=== PATIENT | female | born 1940 | race Caucasian/White ===

== ENCOUNTER → 2017-04-11 | Outpatient (CLI) | payer OTHER | LOC: CIMAGING 09:33 | PROVIDERS: ATTEND Internal Medicine | DX: Z12.31 Encounter for screening mammogram for malignant neoplasm of breast (principal); R92.8 Other abnormal and inconclusive findings on diagnostic imaging of breast | CPT/HCPCS: G0202 ==

== ENCOUNTER → 2017-05-04 | Outpatient (CLI) | payer OTHER | LOC: CIMAGING 13:29 | PROVIDERS: ATTEND Internal Medicine | DX: R92.1 Mammographic calcification found on diagnostic imaging of breast (principal) | CPT/HCPCS: G0204 ==

== ENCOUNTER → 2017-09-05 | Outpatient (CLI) | payer OTHER | LOC: CIMAGING 17:28 | PROVIDERS: ATTEND Internal Medicine | DX: N85.8 Other specified noninflammatory disorders of uterus (principal) | CPT/HCPCS: 76856-PO ==

== ENCOUNTER → 2017-11-07 | Outpatient (CLI) | payer OTHER | LOC: CIMAGING 12:50 | PROVIDERS: ATTEND Internal Medicine | DX: R92.8 Other abnormal and inconclusive findings on diagnostic imaging of breast (principal) ==

== ENCOUNTER 2017-11-11 05:43 | Day surgery (SDC) | payer OTHER ==
[2017-11-11] MEDS ORDERED: LR 1,000 ML IV ONE (06:03)
--- NOTE | 2017-11-11 06:54 | PDANEPAE ---
ANE History of Present Illness endometrial polyp for hysteroscopy ANE Past Medical History - Cardiovascular History Hx Hypertension: Yes Hx Arrhythmias: No Hx Chest Pain: No Hx Coronary Artery / Peripheral Vascular Disease: No Hx CHF / Valvular Disease: No Hx Palpitations: No - Pulmonary History Hx COPD: No Hx Asthma/Reactive Airway Disease: No Hx Recent Upper Respiratory Infection: No Hx Oxygen in Use at Home: No Hx Sleep Apnea: No Sleep Apnea Screening Result - Last Documented: Negative - Neurologic History Hx Cerebrovascular Accident: No Hx Seizures: No Hx Dementia: No - Endocrine History Hx Diabetes: Yes Endocrine History Comment: NIDDM-A1C 6.4 - Renal History Hx Renal Disorders: Yes Renal History Comment: NONE SINCE LAST - Liver History Hx Hepatic Disorders: No - Neurological & Psychiatric Hx Hx Neurological and Psychiatric Disorders: No - Cancer History Hx Cancer: No - Congenital Disorder History Hx Congenital Disorders: No - GI History Hx Gastrointestinal Disorders: No - Other Health History Other Health History: UTERINE POLYP-SM AMT BLEEDING;. GLAUCOMA;. EDEMA IN NOSE LININGS; - Chronic Pain History Chronic Pain: No - Surgical History Prior Surgeries: SEVERAL BREAST BX-BILAT BR-60 - -BENIGN ANE Review of Systems Review of systems is: negative Review of Systems: - Exercise capacity METS (RN): 4 METS ANE Patient History - Allergies Allergies/Adverse Reactions: aspartame Allergy (Verified 10/24/17 15:42) lisinopril Allergy (Verified 10/24/17 15:42) sulfite Allergy (Verified 10/24/17 15:42) - Home Medications Home medications: home medication list seen and reviewed Home Medications: Amlodipine Besylate 06/18/14 [Last Taken 11/11/17] Dorzolamide HCl/Timolol Maleat 06/18/14 [Last Taken 11/11/17] K-Tab ER 06/18/14 [Last Taken 11/11/17] Losartan Potassium 06/18/14 [Last Taken 11/11/17] Lumigan 0.01% (RX) 06/18/14 [Last Taken 11/10/17] Metformin 1000 mg 06/18/14 [Last Taken 11/10/17] Simvastatin 06/18/14 [Last Taken 11/10/17] Atenolol-Chlorthalidone 50-25 10/24/17 [Last Taken 11/10/17] Fluticasone Nasal 10/24/17 [Last Taken 11/10/17] Methenamine Eliel 10/24/17 [Last Taken 11/10/17] - NPO status NPO Since - Liquids (Date): 11/11/17 NPO Since - Liquids (Time): 04:00 NPO Since - Solids (Date): 11/10/17 NPO Since - Solids (Time): 20:00 - Anes Hx Anes Hx: no prior problems - Smoking Hx Smoking Status: Never smoked ANE Labs/Vital Signs - Vital Signs Blood Pressure: 168/84 Heart Rate: 65 Respiratory Rate: 18 O2 Sat (%): 92 Height: 160.02 cm Weight: 70.307 kg ANE Physical Exam - Airway Neck exam: FROM Mallampati Score: Class 1 Mouth exam: normal dental/mouth exam - Pulmonary Pulmonary: no respiratory distress - Cardiovascular Cardiovascular: regular rate and rhythym - ASA Status ASA Status: III ANE Anesthesia Plan Anesthesia Plan: GA w LMA
[2017-11-11] MEDS ORDERED: PROPOFOL 200 MG/20 ML VIAL ONE (06:59)
[2017-11-11] MEDS ORDERED: fentaNYL 100 MCG/2 ML INJ ONE (06:59)
[2017-11-11] MEDS ORDERED: DEXAMETHASONE 4 MG/ML VIAL ONE (07:00)
[2017-11-11] MEDS ORDERED: LIDOCAINE 2% 5 ML SDV ONE (07:00)
[2017-11-11] MEDS ORDERED: BUPIVACAINE 0.25% 30 ML SDV ONE (07:00)
[2017-11-11] MEDS ORDERED: ONDANSETRON 4 MG/2 ML VIAL ONE (07:00)
[2017-11-11] MEDS ORDERED: SILVER NITRATE APPLICATOR 1 APPL TP ONE (07:01)
[2017-11-11] MEDS ORDERED: OPIUM/BELLADONNA ALKALO SUPP PR ONE (07:01)
[2017-11-11] MEDS ORDERED: EPINEPHrine 1 MG/ML INJ ONE (07:02)
--- NOTE | 2017-11-11 07:34 | PDGENHP ---
History & Physical Chief Complaint: PMB, Uterine polyp History of Present Illness: 77 yo with PMB I saw in the office. Had US that suggested small endometrial polyp. Recommended HSC with removal to be sure we don't miss any malignancy within that lesion. Pertinent Past, Social, Family History: Non-contributory. Relevant Physical Exam: NAD, RRR, LCTAB. Assessment & Plan Assessment: Preop: HSC, Endometrial sampling and polyp removal - Routine preop orders. - No abx needed. - RBA discussed in clinic and consents signed in person. - Home after procedure.
[2017-11-11] MEDS ORDERED: ACETAMINOPHEN 500 MG TAB PO PRN (08:05)
[2017-11-11] MEDS ORDERED: LR 500 ML IV PRN (08:05)
[2017-11-11] MEDS ORDERED: HYDROCODONE/APAP 5/325 TAB PO PRN (08:05)
[2017-11-11] MEDS ORDERED: HYDROmorphONE/DILAUDID 1 MG/ML INJ IVP PRN (08:05)
[2017-11-11] MEDS ORDERED: fentaNYL 100 MCG/2 ML INJ IVP PRN (08:05)
[2017-11-11] MEDS ORDERED: ONDANSETRON 4 MG/2 ML VIAL IVP PRN (08:05)
[2017-11-11] MEDS ORDERED: ALBUTEROL 3 ML DEYVIAL IH PRN (08:05)
[2017-11-11] MEDS ORDERED: PROMETHAZINE HCL 25 MG/ML INJ IVP PRN (08:05)
[2017-11-11] MEDS ORDERED: NALOXONE HCL 0.4 MG/ML INJ IVP PRN (08:05)
[2017-11-11] MEDS ORDERED: oxyCODONE IR 5 MG TAB PO PRN (08:05)
--- NOTE | 2017-11-11 08:05 | POSTANESTH ---
Post Anesthetic Evaluation Cardiovascular Status: Normal, Stable Respiratory Status: Normal, Stable Level of Consciousness/Mental Status: Can Participate in Eval, Mildly Sleepy, Arousable Pain Control: Adequate, Prn Tx Ordered Nausea/Vomiting Control: Adequate, Prn Tx Ordered Complications Possibly Related to Anesthesia: None Noted
--- NOTE | 2017-11-11 08:25 | SUROPNOTE ---
[facility] Operative Report - Surgery Date of Operation: 11/11/17 Surgeon: Yohannes Edgar Core Oven Tender: None Anesthesia: GET(General Endotracheal) Pre-op Diagnosis: PMB, Uterine polyp Post-op Diagnosis: Same Procedure: Diagnostic hysteroscopy Findings: 1.5cm uterine polyp eminating from left cornua, other atrophic lining Inf/Abcess present in the surg proc area at time of surgery?: No EBL: Minimal Complications: None Specimen(s): Uterine polyp, endometrial sampling Technique:
[2017-11-11 10:35] VITALS: BP 134/50
== END 2017-11-11 10:40 | disposition home or self-care (01) ==
LOC: FSGY 05:43
PROVIDERS: ATTEND Obstetrics & Gynecology
PROC: 0UDB8ZX Extraction of Endometrium, Via Natural or Artificial Opening Endoscopic, Diagnostic (ICD-10-PCS; principal; 2017-11-11 07:15)
DX: N84.0 Polyp of corpus uteri (principal); N92.4 Excessive bleeding in the premenopausal period; E11.9 Type 2 diabetes mellitus without complications; H40.9 Unspecified glaucoma
CPT/HCPCS: 58558; C1782; J0171; J1100; J2405; J2704; J3010

== ENCOUNTER → 2018-04-06 | Outpatient (CLI) | payer OTHER | LOC: CIMAGING 14:27 | PROVIDERS: ATTEND Internal Medicine | DX: Z12.31 Encounter for screening mammogram for malignant neoplasm of breast (principal) ==